=== PATIENT | male | born 1965 | race Caucasian/White ===

== ENCOUNTER 2023-02-08 14:16 | Inpatient (IN) | payer MEDICARE, OTHER ==
[~2023-02-08] VITALS: Ht 180.3 cm; Wt 106.1 kg
[2023-02-08] MEDS ORDERED: IV NS 0.9% 1,000 ML BAG IV ONE (15:00)
[2023-02-08] MEDS ORDERED: CEFTRIAXONE 1GM BAG (ER ONLY) 50 ML IV ONE (15:00)
[2023-02-08] MEDS ORDERED: VANCOMYCIN 1 GM in IV D5W 250 ML IV ONE (15:00)
[2023-02-08] MEDS ORDERED: AZITHROMYCIN 500 MG in IV D5W 250 ML IV ONE (15:00)
[2023-02-08] MEDS ORDERED: AZTREONAM 1 G in IV NS 0.9% 100 ML IV ONE (15:00)
--- NOTE | 2023-02-08 15:22 | NUR ---
BLOOD AND CULTRUES DRAWN
[2023-02-08 15:33] LABS: BASOPHILS # (AUTO) 0.1 K/uL (0.0-0.2); BASOPHILS % (AUTO) 0.7 % (0.0-2.0); EOSINOPHILS % (AUTO) 0.3 % (0.0-6.0); HEMATOCRIT 35 % (39-51); HEMOGLOBIN 10.9 g/dL (13.5-17.5); LYMPHOCYTES # (AUTO) 3.4 K/uL (0.8-4.8); LYMPHOCYTES % (AUTO) 17.4 % (20.0-44.0); MEAN CORPUSCULAR HGB CONC 32 g/dl (31.0-36.0); MEAN CORPUSCULAR VOLUME 81 fL (80-96); MONOCYTES # (AUTO) 2.6 K/uL (0.1-1.30); MONOCYTES % (AUTO) 13.5 % (2.0-12.0); NEUTROPHILS # (AUTO) 13.3 K/uL (1.8-8.9); NEUTROPHILS % (AUTO) 68.1 % (43.0-81.0); PLATELET COUNT (AUTO) 295 K/uL (150-450); RED BLOOD CELL COUNT(AUTO) 4.26 MIL/uL (4.5-6.0); WHITE BLOOD COUNT (AUTO) 19.5 K/uL (4.3-11.0)
[2023-02-08] MEDS ORDERED: ARIP5TAB10 PO (15:33)
[2023-02-08] MEDS ORDERED: DUTA1CPM PO (15:33)
[2023-02-08] MEDS ORDERED: CLON1TAB12 PO (15:33)
[2023-02-08] MEDS ORDERED: TEMA15CA5 PO (15:33)
[2023-02-08] MEDS ORDERED: ATOR40TA PO (15:33)
[2023-02-08] MEDS ORDERED: SOMA6VIA SQ (15:33)
[2023-02-08] MEDS ORDERED: INSU100V SQ (15:33)
[2023-02-08] MEDS ORDERED: TEST200V3 IM (15:33)
[2023-02-08] MEDS ORDERED: NALO4SPR NAS (15:33)
[2023-02-08] MEDS ORDERED: DULO60CA45 PO (15:33)
[2023-02-08] MEDS ORDERED: ONDA4TAB5 PO (15:33)
[2023-02-08] MEDS ORDERED: NA P133E RC (15:33)
[2023-02-08] MEDS ORDERED: DIPH1TAB PO (15:33)
[2023-02-08] MEDS ORDERED: BICT1TAB PO (15:33)
[2023-02-08] MEDS ORDERED: BLOO-668 IN (15:33)
[2023-02-08] MEDS ORDERED: VALA500T PO (15:33)
[2023-02-08] MEDS ORDERED: SACU1TAB PO (15:33)
[2023-02-08] MEDS ORDERED: ACET-868 PO (15:33)
[2023-02-08] MEDS ORDERED: EMPA10TA PO (15:33)
[2023-02-08] MEDS ORDERED: HYDR-500 PO (15:33)
[2023-02-08] MEDS ORDERED: OXYC30TA2 PO (15:33)
[2023-02-08] MEDS ORDERED: ALBUTEROL HFA INH (15:33)
[2023-02-08] MEDS ORDERED: APIX5TAB PO (15:33)
[2023-02-08] MEDS ORDERED: BISA10SU11 RC (15:33)
[2023-02-08] MEDS ORDERED: PANT40TA2 PO (15:33)
[2023-02-08] MEDS ORDERED: MAGN400O6 PO (15:33)
[2023-02-08] MEDS ORDERED: OMEG-162 PO (15:33)
[2023-02-08] MEDS ORDERED: MELO-107 PO (15:33)
[2023-02-08] MEDS ORDERED: MELA3TAB41 PO (15:33)
[2023-02-08] MEDS ORDERED: INSU100V7 SQ (15:33)
[2023-02-08] MEDS ORDERED: HYDR25TA4 PO (15:33)
[2023-02-08] MEDS ORDERED: CARI350T PO (15:33)
[2023-02-08] MEDS ORDERED: LIDO30AD10 TP (15:33)
[2023-02-08] MEDS ORDERED: PREG100C PO (15:33)
--- NOTE | 2023-02-08 16:00 | NUR ---
[facility] 717 "Low grade fever/cough/sore throat/swollen lymph
[2023-02-08 16:07] LABS: ALANINE AMINOTRANSFERASE 21 U/L (12-78); ALKALINE PHOSPHATASE 108 U/L (46-116); ASPARTATE AMINOTRANSFERASE 17 U/L (15-37); BILIRUBIN,DIRECT 0.1 mg/dL (0.0-0.2); BILIRUBIN,TOTAL 0.3 mg/dL (0.2-1.0); CALCIUM, SERUM 8.8 mg/dL (8.5-10.1); CARBON DIOXIDE 29 mmol/L (21-32); CREATININE 2.9 mg/dL (0.6-1.3); GLUCOSE 115 mg/dL (74-106); TOTAL PROTEIN, SERUM 8.2 g/dL (6.4-8.2); UREA NITROGEN, BLOOD 34 mg/dL (7-18)
[2023-02-08 16:12] LABS: ALBUMIN 3.4 g/dL (3.4-5.0); CHLORIDE 91 mmol/L (98-107); POTASSIUM 3.8 mmol/L (3.5-5.1); SODIUM SERUM 129 mmol/L (136-145)
--- NOTE | 2023-02-08 17:41 | NUR ---
SEVERAL (5) IV STICK ATTEMPTS AWAITING MIDLINE INSERTION
--- NOTE | 2023-02-08 17:53 | NUR ---
BETH MORIN AT BEDSIDE
[2023-02-08] MEDS ORDERED: clonazePAM 1 MG TABLET PO SCH (18:30)
--- NOTE | 2023-02-08 19:50 | NUR ---
RM 105-T
--- NOTE | 2023-02-08 20:13 | NUR ---
handoff report given to chelsea
[2023-02-08] MEDS ORDERED: DEXTROSE 50%-WATER 50 ML DISP.SYRIN IV PRN (20:30)
[2023-02-08] MEDS ORDERED: Z GUARD REMEDY 4 OZ OINT TP PRN (20:30)
[2023-02-08] MEDS ORDERED: CEFTRIAXONE 1 G in IV D5W 50 ML IV SCH ×5 (20:30→21:00)
[2023-02-08] MEDS ORDERED: BENZONATATE 100 MG CAPSULE PO PRN (20:30)
--- NOTE | 2023-02-08 20:49 | NUR ---
NOTIFIED HOSPITALIST JENI THAT PATIENT IS ALLERGIC TO KEFLEX. ORDERED TO D/C AND REPLACE WITH LEVAQUIN 500MG IVPB Q24H. NOTED AND CARRIED OUT. PHARMACY NOTIFIED.
[2023-02-08 21:32] VITALS: BP_SYST 122; BP_SYST 96; BP_DIAS 67; BP_DIAS 70; TEMP 100.2; O2SAT 92
--- NOTE | 2023-02-08 21:32 | NUR ---
SHALE PLANER OPERATOR NOTE RECEIVED PATIENT FROM ED AT 2132 VIA GURNEY UNDER THE CARE OF MONIQUE MORIN WITH DX OF CAP. PATIENT ALERT ORIENTED X4, WITH NC OF 02 SAT 6L AT 93% WITH C/O SHORT OF BREATH AND CONGESTION NOTED. PATIENT ORIENT TO HIS ROOM. PATIENT VITALS BP 122/70 HR 107 WITH SLIGHT FEVER OF 100.2 WEIGHT OF 244. SKIN ASSESSMENT SKIN INTACT CHECK WITH 2 RN. AMBULATORY WITH ASSIST. IV ACCESS ON NAFISA MIDLINE 18G. RUNNING OF IV NS 0.9 AT 75ML/HR. INTACT INFUSING WELL. ALL BELONGINGS CHECK AND ACCOUNTED. CALL LIGHT IN REACH. SAFETY MEASURE PROVIDED . BED IN LOWEST POSITION AND LOCK AND BED ALARM. CONTINUE OF CARE
[2023-02-08] MEDS: ACETAMINOPHEN 325 MG TABLET PO PRN (21:49)
[2023-02-08] MEDS: oxyCODONE IR immediate release 5 MG PO PRN (21:51)
[2023-02-08] MEDS: ARIPIPRAZOLE 5 MG TABLET PO SCH (21:53)
[2023-02-08] MEDS: ATORVASTATIN 40 MG TABLET PO SCH (21:53)
[2023-02-08] MEDS: GUAIFENESIN LA 600 MG TABLET.SA PO SCH (21:53)
[2023-02-08] MEDS: PANTOPRAZOLE 40 MG TABLET.DR PO SCH (21:55)
[2023-02-08] MEDS: INSULIN GLARGINE, 100 UNIT/ML CARTRIDGE SQ SCH (22:00)
[2023-02-08] MEDS: LEVOFLOXACIN 500 MG /D5W 100ML 500 MG in PREMIX 1 EA IV SCH (22:15)
[2023-02-08] MEDS: BLOOD SUGAR DIAGNOSTIC 1 EACH STRIP IN SCH (22:15)
[2023-02-08] MEDS: *INSULIN REGULAR(HUMULIN R)HUM 100 UNIT/ML VIAL SQ PRN (22:16)
[2023-02-08] MEDS: IV NS 0.9% 1,000 ML IV PRN (22:27)
[2023-02-08] MEDS: TEMAZEPAM 15 MG CAPSULE PO SCH (22:29)
[2023-02-08 22:36] LABS: BILIRUBIN,URINE NEGATIVE (NEGATIVE); COLOR,URINE YELLOW (YELLOW); LEUKOCYTE ESTERASE ,URINE NEGATIVE (NEGATIVE); NITRITE, URINE NEGATIVE (NEGATIVE); PH,URINE 5.5 (5.0-8.0); PROTEIN,URINE 1+ mg/dl (NEGATIVE); UGLUCOSE 2+ mg/dL (NEGATIVE); UROBILINOGEN,URINE 0.2 EU/dL (0.2)
--- NOTE | 2023-02-08 23:00 | NUR ---
PATIENT C/O SEVERE SHARP RIGHT LOWER LEG AND FOOT PAIN. GAVE PRN OXY IR 30MG, TOLERATED WELL. VERBALIZED HIS PAIN IS A LOT BETTER NOW.
[2023-02-08 23:05] LABS: RBC,URINE 0-2 /HPF (0-2); WBC,URINE 0-2 /HPF (0-3)
[2023-02-08 23:06] LABS: BACTERIA,URINE 1+ /HPF (None Seen); MUCUS,URINE Moderate /LPF (None Seen); SQUAMOUS EPITHELIAL CELL,UR None Seen /HPF (None Seen)
[2023-02-09] VITALS (14 sets, daily range): BP systolic 111–151; BP diastolic 68–87; TEMP 98–99.3; O2SAT 92–100
--- NOTE | 2023-02-09 01:08 | NUR ---
NOTIFIED HOSPITALIST THAT PATIENT SPO2 IS IN 88-89% ON 5LPM, 91-93% ON 6LPM. PATIENT IS ALSO HAVING SLEEP APNEA. MD ORDERED NOCTURNAL BIPAP WITH THESE SETTINGS: 15/5, RATE OF 14 AND FIO2 35%. NOTED AND CARRIED OUT. INFORMED PATIENT BUT HE IS REFUSING, VERBALIZED HE ALREADY TRIED THIS BEFORE BUT HE IS THROWING UP. RESPIRATORY THERAPIST AWARE. WILL PLACE BIPAP ON BEDSIDE AND ON STANDBY.
--- NOTE | 2023-02-09 01:10 | NUR ---
PT REFUSED NOC BRITNI, BRANDI DECEMBER AND CHARGE NURSE JUNIE AWARE. WILL CONTINUE TO MONITOR T/O SHIFT
--- NOTE | 2023-02-09 01:15 | NUR ---
PATIENT WAS ABLE TO AMBULATE TO THE BATHROOM USING A FWW. WHILE ON ROOM AIR, HE IS SATURATING AT 97-100%
--- NOTE | 2023-02-09 01:31 | NUR ---
RN NOTES PATIENT ARE AWARE THAT HE SIGNED A DNR/DNI FORM LAST YEAR , AND NOW PATIENT AGREE TO BE FULL CODE.
--- NOTE | 2023-02-09 03:04 | NUR ---
COUNTED PATIENT'S MONEY TOTAL OF $179 ($20 X8, $5 X2, $1 X9). ER NOTE THAT IT WAS $284. COUNTED TWICE IN FRONT OF THE PATIENT AND PEGGY MARKETING DATABASE COORDINATOR. CHECKED POCKETS WELL. SPOKE WITH PETER PAZ FROM ER, CONFIRMED THAT TECH WHO SIGNED THE BELONGINGS' SHEET IS SAULO, WILL BE BACK AT 1100. WILL ENDORSE TO AM RN FOR RECHECKING.
[2023-02-09] MEDS: clonazePAM 1 MG TABLET PO SCH ×3 (06:42→20:23)
[2023-02-09] MEDS: PANTOPRAZOLE 40 MG TABLET.DR PO SCH (06:43)
[2023-02-09] MEDS: oxyCODONE IR immediate release 5 MG PO PRN ×3 (07:02→20:00)
--- NOTE | 2023-02-09 07:06 | NUR ---
RN CLOSING NOTE PATIENT IN BED AWAKE. PATIENT ALERT ORIENTED X4, WITH NC OF 02 SAT 5L AT 93% WITH C/O SHORT OF BREATH AND CONGESTION NOTED. PATIENT ON MONITOR OF ST 100 TO 125'S. PATIENT ADMITTED TO [facility] THEN TRANSFER TO [facility]. HRIS ANALYST AWARE, PATIENT ORIENT TO HIS ROOM. PATIENT VITALS WITHIN NORMAL LIMIT. ALL MEDICATION GIVEN ON TIME. PATIENT C/O PAIN AT AROUND 0700 AM 1 TO 10 PAIN LEVEL OF 9 OXYCODONE 30MG ADMINISTERED. SKIN ASSESSMENT SKIN DONE. AMBULATORY WITH ASSIST. IV ACCESS ON NAFISA MIDLINE 18G. RUNNING OF IV NS 0.9 AT 75ML/HR. INTACT INFUSING WELL. ALL BELONGINGS CHECK AND ACCOUNTED. CALL LIGHT IN REACH. SAFETY MEASURE PROVIDED . BED IN LOWEST POSITION AND LOCK AND BED ALARM. ENDORSE TO RN DAY SHIFT.
[2023-02-09 07:07] LABS: BASOPHILS # (AUTO) 0.1 K/uL (0.0-0.2); BASOPHILS % (AUTO) 0.5 % (0.0-2.0); HEMATOCRIT 35 % (39-51); HEMOGLOBIN 11.1 g/dL (13.5-17.5); LYMPHOCYTES # (AUTO) 2.5 K/uL (0.8-4.8); LYMPHOCYTES % (AUTO) 13.4 % (20.0-44.0); MEAN CORPUSCULAR HGB CONC 31 g/dl (31.0-36.0); MEAN CORPUSCULAR VOLUME 82 fL (80-96); MONOCYTES # (AUTO) 1.9 K/uL (0.1-1.30); MONOCYTES % (AUTO) 9.9 % (2.0-12.0); NEUTROPHILS # (AUTO) 14.3 K/uL (1.8-8.9); NEUTROPHILS % (AUTO) 76.2 % (43.0-81.0); PLATELET COUNT (AUTO) 324 K/uL (150-450); RED BLOOD CELL COUNT(AUTO) 4.31 MIL/uL (4.5-6.0); WHITE BLOOD COUNT (AUTO) 18.8 K/uL (4.3-11.0)
--- NOTE | 2023-02-09 07:08 | NUR ---
PER PATIENT, NO ONE CAN BRING HIS HIV MEDS HERE. ALSO, AZACTAM 1G WAS RUNNING AT 100 ML/HR WHEN PATIENT WAS RECEIVED FROM ER.
--- NOTE | 2023-02-09 07:30 | NUR ---
AIRLINE STEWARDESS NOTES PT IN BED, ASLEEP, EASY TO AROUSE, ALERT AND ORIENTED, NO COMPLAINT OF PAIN OR KEVIN DISCOMFORT, BREATHING PATTER NORMAL, CALL LIGHT WITHIN REACH.
[2023-02-09 07:33] LABS: CALCIUM, SERUM 9.1 mg/dL (8.5-10.1); CREATININE 1.4 mg/dL (0.6-1.3); MAGNESIUM 2.5 mg/dL (1.8-2.4); PHOSPHORUS 3.4 mg/dL (2.5-4.9); POTASSIUM 3.7 mmol/L (3.5-5.1)
[2023-02-09] MEDS: IPRATROPIUM NEB FS 0.5 MG/2.5 ML AMPUL.NEB NEB SCH ×4 (07:35→19:57)
[2023-02-09] MEDS: ALBUTEROL FS 2.5 MG/3 ML VIAL.NEB NEB SCH ×4 (07:35→19:57)
[2023-02-09] MEDS: PREGABALIN 100 MG CAPSULE PO SCH ×2 (08:16→16:39)
[2023-02-09] MEDS: GUAIFENESIN LA 600 MG TABLET.SA PO SCH ×2 (08:16→20:22)
[2023-02-09] MEDS: VALACYCLOVIR HCL 500 MG TABLET PO SCH (08:16)
[2023-02-09] MEDS: SACUBITRIL/VALSARTAN 1 EACH TABLET PO SCH ×2 (08:16→16:38)
[2023-02-09] MEDS: APIXABAN 5 MG TABLET PO SCH ×2 (08:18→16:39)
[2023-02-09] MEDS: BLOOD SUGAR DIAGNOSTIC 1 EACH STRIP IN SCH ×4 (08:19→22:34)
[2023-02-09] MEDS ORDERED: DULOXETINE HCL 30 MG CAPSULE.DR PO ONE (09:00)
--- NOTE | 2023-02-09 13:00 | NUR ---
BOAT LABORER NOTES PT IN BED, AWAKE, ALERT AND ORIENTED, NO COMPLAINT AT THIS TIME, NOT IN DISTRESS, ASSISTED TO BATHROOM NEEDED USING A WALKER, IV FLUIDS INFUSING WELL.
[2023-02-09] MEDS: IV NS 0.9% 1,000 ML IV PRN (15:40)
--- NOTE | 2023-02-09 15:51 | NUR ---
EMBALMER/FUNERAL DIRECTOR NOTES PER PT HE HAS $100+ CASTAÑEDA IN HIS WALLET, ASKED IF WE COULD CHECK AND COUNT THEM PT REFUSED, OFFERED TO KEEP HIS CASTAÑEDA IN THE SAFE, PT ALSO REFUSED.
--- NOTE | 2023-02-09 18:02 | NUR ---
MANAGER CRITICAL CARE UNIT NOTES PT IN BED, RESTING, NO COMPLAINT OF PAIN AT THIS TIME, NO COMPLAINT OF SHORTNESS OF BREATH, BREATHING TREATMENT GIVEN BY RT SCHEDULED, SPUTUM SPECIMEN SENT TO LAB FOR CULTURES, PM MEDS GIVEN, ASSISTED TO BATHROOM NEEDED, ABLE TO AMBULATE TO BATHROOM WITH A WALKER, SAFETY PRECAUTIONS OBSERVED.
--- NOTE | 2023-02-09 19:15 | NUR ---
LEVERMAN OPENING NOTE PATIENT IS SLEEPING IN BED; EASILY BEING AROUSED. PT IS ALERT AND ORIENTED, AO X 4. HE IS ON 5 LMP OF OXYGEN VIA NC, TOLERATED WELL. NO S/S OF DISTRESS OR SOB. PT IS ON EXTERNAL MACHINE SOLE LEVELER, HIS CURRENT HEART RHYTHM IS ST WITH HR AT 100S. PT HAS IV ACCESS AT HIS L UA, ML, #18G, INFUSING NS @ 75 ML/HR. SAFETY MEASURES ARE IN PLACED: BED IN LOWEST AND LOCKED POSITION; SIDE RAILS UP X 2; CALL LIGHT AND TABLE ARE WITHIN REACH. WILL CONTINUE MONITORING THE PT AND PROVIDE THE CARE PT NEEDS.
--- NOTE | 2023-02-09 19:59 | NUR ---
PT REFUSED NOC BIPAP , RN AND CHARGE NURSE AWARE. NO RESPIRATORY DISTRESS NOTED AT THIS TIME.
--- NOTE | 2023-02-09 20:00 | NUR ---
METAL FITTERS AND MACHINISTS NOTE PT STATED THAT HE WAS HAVING PAIN AT HIS R LOWER LEG AND FOOT. HIS PAIN LEVEL IS 9/10. PRN PO MEDICATION, OXY IR 30 MG, ADMINISTERED PER MD ORDER.
[2023-02-09] MEDS: DOXYCYCLINE 100 MG in IV D5W 100 ML IV SCH (20:22)
[2023-02-09] MEDS: ATORVASTATIN 40 MG TABLET PO SCH (21:11)
[2023-02-09] MEDS: TEMAZEPAM 15 MG CAPSULE PO SCH (21:11)
[2023-02-09] MEDS: ARIPIPRAZOLE 5 MG TABLET PO SCH (21:11)
[2023-02-09] MEDS: LEVOFLOXACIN 500 MG /D5W 100ML 500 MG in PREMIX 1 EA IV SCH (21:20)
[2023-02-09] MEDS: INSULIN GLARGINE, 100 UNIT/ML CARTRIDGE SQ SCH (22:00)
--- NOTE | 2023-02-09 22:36 | NUR ---
STAFF DEVELOPMENT EDUCATOR NOTE PT'S ACCU-CHEK RESULT IS 88. 120 ML OF ORANGE JUICE AND ONE SANDWICH PROVIDED TO THE PT. PT REFUSED TO HAVE SCHEDULED LANTUS DUE AT 2200. Addendum: 02/10/23 at 0020 by LB HAMILTON RN NO REGULAR INSULIN BEING ADMINISTERED PER SLIDING SCALE.
[2023-02-10] VITALS (15 sets, daily range): BP systolic 103–186; BP diastolic 68–91; TEMP 97.9–98.9; O2SAT 95–100
[2023-02-10] MEDS: ACETAMINOPHEN 325 MG TABLET PO PRN (00:59)
[2023-02-10] MEDS: oxyCODONE IR immediate release 5 MG PO PRN ×4 (02:16→20:22)
--- NOTE | 2023-02-10 02:17 | NUR ---
DENTAL ASSISTANT NOTE PT STATED THAT HE WAS HAVING PAIN AT HIS R LOWER LEG AND FOOT. HIS PAIN LEVEL IS 9/10. PRN PO MEDICATION, OXY IR 30 MG, ADMINISTERED PER MD ORDER.
[2023-02-10] MEDS: clonazePAM 1 MG TABLET PO SCH ×3 (06:03→21:28)
--- NOTE | 2023-02-10 06:23 | NUR ---
DINKEY DRIVER CLOSING NOTE PATIENT IS SLEEPING IN BED; EASILY BEING AROUSED. PT IS ALERT AND ORIENTED, AO X 4. HE IS ON 2 LMP OF OXYGEN VIA NC, TOLERATED WELL. NO S/S OF DISTRESS OR SOB. PT IS ON EXTERNAL DENTURE WAXER, HIS CURRENT HEART RHYTHM IS SR WITH BBB WITH HR BETWEEN 90S TO 100S. PT HAS IV ACCESS AT HIS L UA, ML, #18G, INFUSING NS @ 75 ML/HR. SAFETY MEASURES ARE IN PLACED: BED IN LOWEST AND LOCKED POSITION; SIDE RAILS UP X 2; CALL LIGHT AND TABLE ARE WITHIN REACH. WILL ENDORSE NEXT SHIFT NURSE FOR CONTINUING PT CARE.
[2023-02-10 07:21] LABS: BASOPHILS # (AUTO) 0.1 K/uL (0.0-0.2); BASOPHILS % (AUTO) 0.4 % (0.0-2.0); EOSINOPHILS % (AUTO) 0.6 % (0.0-6.0); HEMATOCRIT 35 % (39-51); HEMOGLOBIN 10.9 g/dL (13.5-17.5); LYMPHOCYTES % (AUTO) 23.3 % (20.0-44.0); MEAN CORPUSCULAR HGB CONC 31 g/dl (31.0-36.0); MEAN CORPUSCULAR VOLUME 82 fL (80-96); MONOCYTES % (AUTO) 11.5 % (2.0-12.0); NEUTROPHILS # (AUTO) 10.9 K/uL (1.8-8.9); NEUTROPHILS % (AUTO) 64.2 % (43.0-81.0); PLATELET COUNT (AUTO) 340 K/uL (150-450); RED BLOOD CELL COUNT(AUTO) 4.26 MIL/uL (4.5-6.0)
--- NOTE | 2023-02-10 07:25 | NUR ---
ms rn received on bed, awakek,alert,oriented x4, not in any form of distress, respirations even ane unlabored, no sob noted.on o2 2 liters, saturating well,came in w/ dx PNA, no fever, no nausea, saturating well, medicated for pain legs/ amd lower body pain, up w/ PT using FWW, tolerated well, blood sugar in range, all needs attended, no distress noted.
[2023-02-10 07:39] LABS: CALCIUM, SERUM 9.4 mg/dL (8.5-10.1); CREATININE 0.9 mg/dL (0.6-1.3); POTASSIUM 3.6 mmol/L (3.5-5.1)
[2023-02-10] MEDS: ALBUTEROL FS 2.5 MG/3 ML VIAL.NEB NEB SCH ×4 (07:45→19:30)
[2023-02-10] MEDS: IPRATROPIUM NEB FS 0.5 MG/2.5 ML AMPUL.NEB NEB SCH ×4 (07:45→19:30)
[2023-02-10] MEDS: PANTOPRAZOLE 40 MG TABLET.DR PO SCH (08:21)
[2023-02-10] MEDS: BLOOD SUGAR DIAGNOSTIC 1 EACH STRIP IN SCH ×4 (08:21→21:47)
[2023-02-10] MEDS: PREGABALIN 100 MG CAPSULE PO SCH ×2 (09:27→17:49)
[2023-02-10] MEDS: SACUBITRIL/VALSARTAN 1 EACH TABLET PO SCH ×2 (09:27→17:49)
[2023-02-10] MEDS: VALACYCLOVIR HCL 500 MG TABLET PO SCH (09:27)
[2023-02-10] MEDS: DOXYCYCLINE 100 MG in IV D5W 100 ML IV SCH ×2 (09:27→20:06)
[2023-02-10] MEDS: GUAIFENESIN LA 600 MG TABLET.SA PO SCH ×2 (09:29→21:29)
[2023-02-10] MEDS: APIXABAN 5 MG TABLET PO SCH ×2 (09:32→17:50)
--- NOTE | 2023-02-10 14:00 | NUR ---
ms rn left upper arm midline not working, new iv site inserted at left wrist,G22, infusing well.
--- NOTE | 2023-02-10 18:01 | NUR ---
ms rn patient eating dinner, , care rounding done q 2 hours and prn,all needs attended.
--- NOTE | 2023-02-10 19:30 | NUR ---
CONSTRUCTION ASSISTANT OPENING NOTE RECEIVED PATIENT AWAKE IN BED. A/O X4. ON RA WITH NO SOB OR RESPIRATORY DISTRESS NOTED. C/O 04/24 PAIN, EXPLAINED PAIN IS NOT DUE TILL 2029, PT VERBALIZED UNDERSTANDING. ON PREPARATION SUPERVISOR READING SINUS TACHYCARDIA, 105 HR. IV ACCESS AT L HAND #22G, PATENT, INTACT, FLUSHING WELL, INFUSING NS @ 75 ML/HR. SAFETY MEASURES IN PLACE: BED LOCKED AND IN LOWEST POSITION, SIDE RAILS UP X3, CALL LIGHT AND TABLE WITHIN REACH. WILL CONTINUE TO MONITOR AND ASSIST.
[2023-02-10] MEDS: LEVOFLOXACIN 500 MG /D5W 100ML 500 MG in PREMIX 1 EA IV SCH (21:28)
[2023-02-10] MEDS: ARIPIPRAZOLE 5 MG TABLET PO SCH (21:29)
[2023-02-10] MEDS: ATORVASTATIN 40 MG TABLET PO SCH (21:29)
--- NOTE | 2023-02-10 21:30 | NUR ---
RN NOTE: BP 186/91 AT 2030, PT VERBALIZED HE IS IN PAIN. GIVEN PRESCRIBED PRN OXY IR 30 MG. BP REASSESSED AT 2130, 148/84.
[2023-02-10] MEDS: INSULIN GLARGINE, 100 UNIT/ML CARTRIDGE SQ SCH (21:48)
--- NOTE | 2023-02-10 21:48 | NUR ---
RN NOTE: BLOOD SUGAR 117, VERBALIZED HE DOESN'T NEED SCHEDULED LANTUS 20 UNITS.
[2023-02-10] MEDS: *INSULIN REGULAR(HUMULIN R)HUM 100 UNIT/ML VIAL SQ PRN (21:49)
[2023-02-10] MEDS: TEMAZEPAM 15 MG CAPSULE PO SCH (22:19)
--- NOTE | 2023-02-10 23:00 | NUR ---
RN NOTE: PT REFUSED BED ALARM. EXPLAINED RISK/BENEFITS, VERBALIZED UNDERSTANDING.
[2023-02-11] VITALS (8 sets, daily range): BP systolic 133–159; BP diastolic 72–98; TEMP 97.6–98.5; O2SAT 94–98
[2023-02-11] MEDS: IV NS 0.9% 1,000 ML IV PRN (02:27)
[2023-02-11] MEDS: oxyCODONE IR immediate release 5 MG PO PRN ×4 (02:27→20:51)
--- NOTE | 2023-02-11 03:45 | NUR ---
RN NOTE: PT REQUESTING O2 SUPPLEMENTATION. SATURATING AT 91% AT THIS TIME, NO SOB NOTED. PLACED ON O2 2L VIA NC, SATURATING AT 96%.
[2023-02-11 06:01] LABS: CALCIUM, SERUM 9.7 mg/dL (8.5-10.1); CREATININE 0.9 mg/dL (0.6-1.3); POTASSIUM 3.3 mmol/L (3.5-5.1)
--- NOTE | 2023-02-11 06:19 | NUR ---
FABRICATION SUPERVISOR CLOSING NOTE PATIENT AWAKE IN BED. A/O X4. STABLE ON O2 2L VIA NC, WITH NO SOB OR RESPIRATORY DISTRESS NOTED. C/O 03/25 PAIN, EXPLAINED PAIN MED IS NOT DUE TILL 829, PT VERBALIZED UNDERSTANDING. ON VISUAL COORDINATOR READING SR TO ST WITH BBB DURING SHIFT, 90'S TO 120'S. IV ACCESS AT L HAND #22G, PATENT, INTACT, FLUSHING WELL, INFUSING NS @ 75 ML/HR. ALL CARE PROVIDED AND MEDS TOLERATED WELL. USED URINAL AND ABLE TO WALK TO BATHROOM WITH SBA USING FWW. SAFETY MEASURES MAINTAINED: BED LOCKED AND IN LOWEST POSITION, SIDE RAILS UP X3, CALL LIGHT AND TABLE WITHIN REACH. WILL ENDORSE CONCHITA TO DAY SHIFT NURSE.
[2023-02-11] MEDS: clonazePAM 1 MG TABLET PO SCH ×3 (06:41→20:40)
[2023-02-11] MEDS: ONDANSETRON HCL/PF 4 MG/2 ML VIAL IVP PRN ×2 (06:47→19:09)
[2023-02-11] MEDS: ALBUTEROL FS 2.5 MG/3 ML VIAL.NEB NEB SCH ×4 (07:35→19:30)
[2023-02-11] MEDS: IPRATROPIUM NEB FS 0.5 MG/2.5 ML AMPUL.NEB NEB SCH ×4 (07:35→19:19)
[2023-02-11] MEDS ORDERED: POTASSIUM CHLORIDE 20 MEQ TAB.PRT.SR PO SCH (08:00)
[2023-02-11] MEDS: BLOOD SUGAR DIAGNOSTIC 1 EACH STRIP IN SCH ×4 (08:24→22:30)
[2023-02-11] MEDS: PANTOPRAZOLE 40 MG TABLET.DR PO SCH (08:48)
[2023-02-11] MEDS: GUAIFENESIN LA 600 MG TABLET.SA PO SCH ×2 (08:48→20:40)
[2023-02-11] MEDS: DOXYCYCLINE 100 MG in IV D5W 100 ML IV SCH ×2 (08:51→22:19)
[2023-02-11] MEDS: SACUBITRIL/VALSARTAN 1 EACH TABLET PO SCH ×2 (08:54→16:41)
[2023-02-11] MEDS: APIXABAN 5 MG TABLET PO SCH ×2 (08:54→16:42)
[2023-02-11] MEDS: PREGABALIN 100 MG CAPSULE PO SCH ×2 (08:55→16:41)
[2023-02-11] MEDS: VALACYCLOVIR HCL 500 MG TABLET PO SCH (08:55)
--- NOTE | 2023-02-11 19:14 | NUR ---
Patient remain stable c/o has chronic back pain allthe shift , all due medications and pain medications requested given , with effective relief of pain , At 1900 patient c/o feeling of nausea medicated with zofran 4mg ivp , . will continue to monitor and endorse to night nurse
--- NOTE | 2023-02-11 19:45 | NUR ---
TAR DISTILLATION SUPERVISOR OPENING NOTE RECEIVED PATIENT AWAKE IN BED. A/O X4. ON RA WITH NO SOB OR RESPIRATORY DISTRESS NOTED. C/O 04/24, PAIN MEDICATION GIVEN ORDERED AND WILL REASSESS. ON CONSULTING SALES MANAGER READING SINUS TACHYCARDIA, 106 HR. IV ACCESS AT L HAND #22G, PATENT, INTACT, FLUSHING WELL, INFUSING NS @ 75 ML/HR. SAFETY MEASURES IN PLACE: BED LOCKED AND IN LOWEST POSITION, SIDE RAILS UP X2, CALL LIGHT AND BEDSIDE TABLE WITHIN REACH. INSTRUCTED PT TO CALL NURSE WHEN NEEDED AND FOR ASSISTANCE, VERBALIZED UNDERSTANDING. WILL CONTINUE TO MONITOR.
[2023-02-11] MEDS: LEVOFLOXACIN 500 MG /D5W 100ML 500 MG in PREMIX 1 EA IV SCH (20:40)
--- NOTE | 2023-02-11 21:00 | NUR ---
RN NOTE ENDORSED TO BRANDI BUCK FOR CONCHITA
[2023-02-11] MEDS: INSULIN GLARGINE, 100 UNIT/ML CARTRIDGE SQ SCH (22:00)
[2023-02-11] MEDS: ATORVASTATIN 40 MG TABLET PO SCH (22:19)
[2023-02-11] MEDS: TEMAZEPAM 15 MG CAPSULE PO SCH (22:19)
[2023-02-11] MEDS: ARIPIPRAZOLE 5 MG TABLET PO SCH (22:19)
--- NOTE | 2023-02-11 22:46 | NUR ---
PT GLUCOSE IS 92 @ 2200. INFORMED JENI QUINONES. JOIN ORDERED TO HOLD INSULIN LANTUS AND INSULIN REGULAR. ORDER RECEIVED AND CARRIED OUT.
[2023-02-11] MEDS: *INSULIN REGULAR(HUMULIN R)HUM 100 UNIT/ML VIAL SQ PRN (22:48)
--- NOTE | 2023-02-11 23:43 | NUR ---
GOVERNMENT GUARD OF CARE NOTE RECEIVED PT AWAKE AND SITTING IN BED FROM NURSE NANCE. PT IS A.OX 4, ABLE TO MAKE NEEDS KNOWN. PT IS IN 2L O2 INHALATION VIA NASAL CANNULA TOLERATING WELL, BREATHING EVEN AND UNLABORED @ THIS TIME. PT IV IS PRESENT ON THE LEFT HAND #22G RUNNING NS@ 75MLS/HR, PATENT, INTACT AND FLUSHES WELL W/ NO S&SX OF INFILTRATION @ SITE NOTED. PT SERVICE CASHIER IS IN PLACE W/ CURRENT READING OF SINUS TACHYCARDIA, HR OF 108 BPM. SAFETY MEASURE IS IN PLACE. BED IN LOWEST AND LOCKED POSITION. SIDE RAILS UP X 2. BEDSIDE TABLE AND CALL LIGHT IS EASY REACH. BED ALARM IS ON. WILL CONTINUE TO MONITOR PT ACCORDINGLY. Addendum: 02/12/23 at 0013 by HEBER GUADALUPE RN CORRECT TIME ENTRY IS [id number].
[2023-02-12] VITALS (9 sets, daily range): BP systolic 133–161; BP diastolic 77–107; TEMP 97.8–98.7; O2SAT 95–98
[2023-02-12] MEDS: IV NS 0.9% 1,000 ML IV PRN ×2 (01:26→19:41)
[2023-02-12] MEDS: oxyCODONE IR immediate release 5 MG PO PRN ×4 (04:05→21:54)
[2023-02-12] MEDS: clonazePAM 1 MG TABLET PO SCH ×3 (06:01→20:22)
--- NOTE | 2023-02-12 06:31 | NUR ---
RN CLOSING NOTE PT AWAKE AND RESTING COMFORTABLY IN BED. PT IS A.OX 4,RESPONSIVE AND FOLLOWS VERBAL COMMAND. PT IS STABLE IN RA W/ O2 SAT OF 96%, NO S&SX OF RESPIRATORY DISTRESS @ THIS TIME. PT IV IS PRESENT ON THE LEFT HAND #22G RUNNING NS@ 75MLS/HR, PATENT, INTACT AND FLUSHES WELL W/ NO S&SX OF INFILTRATION @ SITE NOTED. PT FARM LOAN INSPECTOR IS IN PLACE W/ CURRENT READING OF SINUS RHYTHM-SINUS TACHYCARDIA W/ BBB, HR 101 BPM. SAFETY MEASURE IS IN PLACE. BED IN LOWEST AND LOCKED POSITION. SIDE RAILS UP X 2. BEDSIDE TABLE AND CALL LIGHT IS EASY REACH. BED ALARM IS ON. WILL ENDORSE PT TO THE NEXT SHIFT FOR CONCHITA.
--- NOTE | 2023-02-12 07:24 | NUR ---
RN OPENING NOTE PT RECEIVED IN BED ASLEEP, AWAKENS TO VERBAL STIMULI. ON ROOM AIR, BREATHING EVEN AND UNLABORED WITH NO S&SX OF RESPIRATORY DISTRESS. IV PRESENT ON LEFT HAND #22G RUNNING NS@ 75MLS/HR, PATENT AND INTACT. AIRLINE FLIGHT ATTENDANT IN PLACE. SAFETY MEASURES IN PLACE WITH BED IN LOWEST AND LOCKED POSITION, SIDE RAILS UP X 2, BEDSIDE TABLE AND CALL LIGHTWITHIN EASY REACH, BED ALARM IS ON. WILL CONTINUE TO MONITOR.
[2023-02-12] MEDS: IPRATROPIUM NEB FS 0.5 MG/2.5 ML AMPUL.NEB NEB SCH ×4 (07:35→19:30)
[2023-02-12] MEDS: ALBUTEROL FS 2.5 MG/3 ML VIAL.NEB NEB SCH ×4 (07:35→19:30)
[2023-02-12 08:08] LABS: CALCIUM, SERUM 9.3 mg/dL (8.5-10.1); CREATININE 0.7 mg/dL (0.6-1.3); PHOSPHORUS 3.5 mg/dL (2.5-4.9); POTASSIUM 3.9 mmol/L (3.5-5.1)
[2023-02-12] MEDS: SACUBITRIL/VALSARTAN 1 EACH TABLET PO SCH ×2 (08:26→16:18)
[2023-02-12] MEDS: PANTOPRAZOLE 40 MG TABLET.DR PO SCH (08:26)
[2023-02-12] MEDS: VALACYCLOVIR HCL 500 MG TABLET PO SCH (08:26)
[2023-02-12] MEDS: GUAIFENESIN LA 600 MG TABLET.SA PO SCH ×2 (08:26→20:22)
[2023-02-12] MEDS: PREGABALIN 100 MG CAPSULE PO SCH ×2 (08:27→16:16)
[2023-02-12] MEDS: APIXABAN 5 MG TABLET PO SCH ×2 (08:27→16:18)
[2023-02-12] MEDS: INSULIN REGULAR, HUMAN 100 UNIT/ML 3 ML VIAL SQ PRN ×3 (08:28→17:35)
[2023-02-12] MEDS: BLOOD SUGAR DIAGNOSTIC 1 EACH STRIP IN SCH ×4 (08:28→22:14)
[2023-02-12] MEDS: DOXYCYCLINE 100 MG in IV D5W 100 ML IV SCH ×2 (08:28→20:02)
[2023-02-12 11:00] LABS: BASOPHILS # (AUTO) 0.2 K/uL (0.0-0.2); BASOPHILS % (AUTO) 1.2 % (0.0-2.0); HEMATOCRIT 36 % (39-51); HEMOGLOBIN 11.4 g/dL (13.5-17.5); LYMPHOCYTES # (AUTO) 3.9 K/uL (0.8-4.8); LYMPHOCYTES % (AUTO) 22.3 % (20.0-44.0); MEAN CORPUSCULAR HGB CONC 32 g/dl (31.0-36.0); MEAN CORPUSCULAR VOLUME 81 fL (80-96); MONOCYTES # (AUTO) 1.7 K/uL (0.1-1.30); MONOCYTES % (AUTO) 9.5 % (2.0-12.0); NEUTROPHILS # (AUTO) 11.8 K/uL (1.8-8.9); PLATELET COUNT (AUTO) 400 K/uL (150-450); RED BLOOD CELL COUNT(AUTO) 4.43 MIL/uL (4.5-6.0); WHITE BLOOD COUNT (AUTO) 17.6 K/uL (4.3-11.0)
--- NOTE | 2023-02-12 19:17 | NUR ---
RN CLOSING NOTE PT IN BED ASLEEP RESTING COMFORTABLY. ALERT AND ORIENTED X4. ON ROOM AIR, BREATHING EVEN AND UNLABORED WITH NO S&SX OF RESPIRATORY DISTRESS. IV ACCESS ON LEFT UPPER ARM MIDLINE RUNNING NS@ 75MLS/HR, PATENT AND INTACT. ADULT LIVE IN CAREGIVER IN PLACE. ALL DUE MEDS GIVEN. SAFETY MEASURES IN PLACE WITH BED IN LOWEST AND LOCKED POSITION, SIDE RAILS UP X 2, BEDSIDE TABLE AND CALL LIGHT WITHIN EASY REACH, BED ALARM IS ON. WILL ENDORSE TO ONCOMING SHIFT FOR CONCHITA.
--- NOTE | 2023-02-12 19:50 | NUR ---
SCOURING TRAIN OPERATOR OPENING NOTE PT RECEIVED IN BED ASLEEP, AWAKENS TO VERBAL STIMULI. ON ROOM AIR, BREATHING EVEN AND UNLABORED WITH NO S&SX OF RESPIRATORY DISTRESS. IV PRESENT ON LEFT UA MIDLINE RUNNING NS@ 75MLS/HR, PATENT AND INTACT. CONSTRUCTION COORDINATOR IN PLACE. SAFETY MEASURES IN PLACE WITH BED IN LOWEST AND LOCKED POSITION, SIDE RAILS UP X 2, BEDSIDE TABLE AND CALL LIGHT WITHIN EASY REACH, BED ALARM IS ON. WILL CONTINUE TO MONITOR.
[2023-02-12] MEDS: ACETAMINOPHEN 325 MG TABLET PO PRN (20:34)
--- NOTE | 2023-02-12 20:34 | NUR ---
rn note Pt c/o pain 10/10 on lower back and R leg. Tylenol for pain given because Oxycodone is not due yet. Will continue to monitor.
[2023-02-12] MEDS: LEVOFLOXACIN 500 MG /D5W 100ML 500 MG in PREMIX 1 EA IV SCH (21:32)
[2023-02-12] MEDS: ATORVASTATIN 40 MG TABLET PO SCH (21:40)
[2023-02-12] MEDS: ARIPIPRAZOLE 5 MG TABLET PO SCH (21:40)
[2023-02-12] MEDS: TEMAZEPAM 15 MG CAPSULE PO SCH (21:40)
--- NOTE | 2023-02-12 21:55 | NUR ---
rn note Pt c/o of pain 04/24. Oxycodone PRN given. Will continue to monitor
[2023-02-12] MEDS: INSULIN GLARGINE, 100 UNIT/ML CARTRIDGE SQ SCH ×2 (22:00→22:24)
--- NOTE | 2023-02-12 22:00 | NUR ---
RN NOTE NAFISA MID LINE IV IS INFILTRATED. NEW IV INSERTION STARTED ON THE RIGHT HAND 22G AND NOW PATENT AND INTACT. BLOOD SUGAR 103. NO INSULIN GIVEN. PT REFUSED LANTUS INSULIN. NO S/S OF HYPER/HYPOGLYCEMIA/ WILL CONTINUE TO MONITOR.
[2023-02-12] MEDS: *INSULIN REGULAR(HUMULIN R)HUM 100 UNIT/ML VIAL SQ PRN (22:43)
[2023-02-13] VITALS (8 sets, daily range): BP systolic 128–157; BP diastolic 71–96; TEMP 97.5–98.3; O2SAT 95–100
[2023-02-13] MEDS: ACETAMINOPHEN 325 MG TABLET PO PRN (02:36)
--- NOTE | 2023-02-13 02:36 | NUR ---
rn note Pt c/o of pain. Tylenol PO PRN given. Will continue to monitor.
[2023-02-13] MEDS: oxyCODONE IR immediate release 5 MG PO PRN ×2 (04:06→10:48)
--- NOTE | 2023-02-13 04:06 | NUR ---
rn note Pt c/o of pain. Oxycodone PRN given. Will continue to monitor
[2023-02-13] MEDS: clonazePAM 1 MG TABLET PO SCH ×2 (06:36→10:06)
--- NOTE | 2023-02-13 06:46 | NUR ---
GIFT OFFICER CLOSING NOTE PT IN BED ASLEEP AND AROUSABLE EASILY. ALERT AND ORIENTED X4. ON ROOM AIR TOLERATING WELL SATTING AT 95%, BREATHING EVEN AND UNLABORED WITH NO S&SX OF RESPIRATORY DISTRESS. IV ACCESS ON LEFT UPPER ARM MIDLINE IS UNABLE TO FLUSH. IV ON RT HAND 22G IS RUNNING NS@ 75MLS/HR, PATENT AND INTACT. NO S/S OF INFILTRATION ON RT HAND IV. FILAMENT CUTTER IN PLACE SHOWING SINUS RHYTHM AT 85. ALL DUE MEDS ARE GIVEN. PT C/O PAIN THROUGHOUT THE SHIFT. PRN PAIN MEDS GIVEN ORDERED. SAFETY MEASURES IN PLACE WITH BED IN LOWEST AND LOCKED POSITION, SIDE RAILS UP X 2, BEDSIDE TABLE AND CALL LIGHT WITHIN REACH, BED ALARM IS ON. KEPT PT CLEAN AND DRY. PT IS CALM AND COOPERATIVE. WILL ENDORSE CARETO AM SHIFT RN.
[2023-02-13] MEDS: ALBUTEROL FS 2.5 MG/3 ML VIAL.NEB NEB SCH ×3 (07:27→15:30)
[2023-02-13] MEDS: IPRATROPIUM NEB FS 0.5 MG/2.5 ML AMPUL.NEB NEB SCH ×3 (07:27→15:30)
--- NOTE | 2023-02-13 07:30 | NUR ---
JEWEL CORNER BRUSHING MACHINE OPERATOR AM NOTE PT RECEIVED IN BED ASLEEP, RESPONDS TO VERBAL AND TACTILE STIMULI. ON ROOM AIR, O2 SAT 96%, BREATHING EVEN AND UNLABORED, NO DISTRESS, SR HR 99, DNEIES PAIN/DISCOMFORT, IV ACCESS ON LEFT UA MIDLINE, NOT WORKING, RT HAND G 22 FLUSHES WELL SITE CLEAR WITH NS@ 75MLS/HR INFUSING WELL, AMB STANDBY ASSIST. SKIN INTACT. SAFETY MEASURES IN PLACE WITH BED IN LOWEST AND LOCKED POSITION, SIDE RAILS UP X 2, BEDSIDE TABLE AND CALL LIGHT WITHIN EASY REACH, BED ALARM IS ON. WILL CONTINUE TO MONITOR.
[2023-02-13 07:53] LABS: CALCIUM, SERUM 9.7 mg/dL (8.5-10.1); CREATININE 0.8 mg/dL (0.6-1.3); MAGNESIUM 1.7 mg/dL (1.8-2.4); PHOSPHORUS 3.7 mg/dL (2.5-4.9); POTASSIUM 3.6 mmol/L (3.5-5.1)
[2023-02-13] MEDS: PANTOPRAZOLE 40 MG TABLET.DR PO SCH (08:03)
[2023-02-13] MEDS: BLOOD SUGAR DIAGNOSTIC 1 EACH STRIP IN SCH ×2 (08:03→12:30)
[2023-02-13 08:07] LABS: BASOPHILS # (AUTO) 0.1 K/uL (0.0-0.2); BASOPHILS % (AUTO) 0.5 % (0.0-2.0); EOSINOPHILS % (AUTO) 0.3 % (0.0-6.0); HEMATOCRIT 35 % (39-51); HEMOGLOBIN 10.7 g/dL (13.5-17.5); LYMPHOCYTES # (AUTO) 6.7 K/uL (0.8-4.8); LYMPHOCYTES % (AUTO) 33.3 % (20.0-44.0); MEAN CORPUSCULAR HGB CONC 31 g/dl (31.0-36.0); MEAN CORPUSCULAR VOLUME 82 fL (80-96); MONOCYTES # (AUTO) 2.2 K/uL (0.1-1.30); MONOCYTES % (AUTO) 10.9 % (2.0-12.0); NEUTROPHILS # (AUTO) 11.2 K/uL (1.8-8.9); PLATELET COUNT (AUTO) 427 K/uL (150-450); RED BLOOD CELL COUNT(AUTO) 4.22 MIL/uL (4.5-6.0); WHITE BLOOD COUNT (AUTO) 20.3 K/uL (4.3-11.0)
[2023-02-13] MEDS: DOXYCYCLINE 100 MG in IV D5W 100 ML IV SCH (09:19)
[2023-02-13] MEDS: GUAIFENESIN LA 600 MG TABLET.SA PO SCH (09:20)
[2023-02-13] MEDS: APIXABAN 5 MG TABLET PO SCH (09:20)
[2023-02-13] MEDS: PREGABALIN 100 MG CAPSULE PO SCH (09:20)
[2023-02-13] MEDS: SACUBITRIL/VALSARTAN 1 EACH TABLET PO SCH (09:21)
[2023-02-13] MEDS: VALACYCLOVIR HCL 500 MG TABLET PO SCH (09:21)
--- NOTE | 2023-02-13 09:30 | NUR ---
RN NOTES DUE MEDS GIVEN
[2023-02-13] MEDS ORDERED: MAGNESIUM OXIDE 400 MG TABLET PO ONE (12:00)
[2023-02-13] MEDS ORDERED: DOXY100C2 PO (13:27)
[2023-02-13] MEDS ORDERED: CEFU250T85 PO (13:31)
--- NOTE | 2023-02-13 16:45 | NUR ---
CAUL DRESSER NOTES PATIENT DISCHARGED TO [facility], [place] PER MD IN STABLE CONDITION. PROVIDED DC INSTRUCTIONS, MED RECON LIST AND HEALTH TEACHINGS. PATIENT TO FOLLOW UP WITH PCP IN 1 WEEK OR PER FACILITY PROTOCOL. IV ACCESS LEFT UPPER ARM MIDLINE AND RT HAND REMOVED, CATH TIP COMPLETE, APPLIED PRESSURE AND DRESSING. NO BLEEDING. NO SKIN ISSUES. ALL BELONGINGS CHECKED AND SIGNED. ALL PAPERWORKS SIGNED. PICKED UP BY 2 AMBULANCE PERSONNEL. WILL BE TRANSPORTED TO FACILITY VIA AMBULANCE.
--- NOTE | 2023-02-14 11:02 | NUR ---
Unable to assess. Pt is discharged.
== END 2023-02-13 16:39 | DRG 871 ==
LOC: ER 14:20 → TELE1 19:54
PROVIDERS: ADMIT Nurse Practitioner Acute Care; ATTEND Nurse Practitioner Acute Care
PROC: 05H633Z Insertion of Infusion Device into Left Subclavian Vein, Percutaneous Approach (ICD-10-PCS; principal; 2023-02-08)
PROC: B547ZZA Ultrasonography of Left Subclavian Vein, Guidance (ICD-10-PCS; 2023-02-08)
DX: A41.9 Sepsis, unspecified organism (principal); J15.9 Unspecified bacterial pneumonia; N17.0 Acute kidney failure with tubular necrosis; E87.1 Hypo-osmolality and hyponatremia; D68.69 Other thrombophilia; I69.351 Hemiplegia and hemiparesis following cerebral infarction affecting right dominant side; J44.0 Chronic obstructive pulmonary disease with (acute) lower respiratory infection; D63.8 Anemia in other chronic diseases classified elsewhere; E11.9 Type 2 diabetes mellitus without complications; E78.5 Hyperlipidemia, unspecified; E87.6 Hypokalemia; F31.9 Bipolar disorder, unspecified; G89.4 Chronic pain syndrome; K21.9 Gastro-esophageal reflux disease without esophagitis; K74.60 Unspecified cirrhosis of liver; M19.90 Unspecified osteoarthritis, unspecified site; Z79.01 Long term (current) use of anticoagulants; Z79.4 Long term (current) use of insulin; Z79.84 Long term (current) use of oral hypoglycemic drugs; Z86.711 Personal history of pulmonary embolism; Z90.81 Acquired absence of spleen; Z20.822 Contact with and (suspected) exposure to COVID-19; D72.829 Elevated white blood cell count, unspecified; I10 Essential (primary) hypertension; Z86.2 Personal history of diseases of the blood and blood-forming organs and certain disorders involving the immune mechanism; Z88.1 Allergy status to other antibiotic agents
CPT/HCPCS: 36415; 71045-TC; 80048-TC; 80061-TC; 80076-TC; 81001; 82962-TC; 83605-TC; 83735-TC; 83880; 84100-TC; 84484-TC; 85025-TC; 85730-TC; 87040-TC; 87081-TC; 87086-TC; 94799-TC; 97112-TC; 97116-TC; 97530-TC; A4216; A4223; C9803; G0378; J0456; J0696; J1815; J1956; J2405; J3370; J3490; J7030; J7060